=== PATIENT | female | born 1955 | race African-American/Black ===

== ENCOUNTER → 2017-07-02 | Outpatient (CLI) | payer OTHER ==
--- NOTE | 2017-07-02 14:45 | CT ---
EXAMINATION TYPE: CT abdomen pelvis wo con DATE OF EXAM: 07/02/2017 HISTORY: Hematuria per order. Severe pain 5-6 days ago per patient. CT DLP: 626.1 mGycm. Automated Exposure Control for Dose Reduction was Utilized. TECHNIQUE: CT scan of the abdomen and pelvis is performed without oral or IV contrast. COMPARISON: NONE FINDINGS: Within the limitations of a non-contrast study, the following observations are made. LUNG BASES: There is some linear scarring and/or atelectasis in both lower lobes near diaphragm.. LIVER/GB: Liver particularly right lobe of liver is diffusely low dense relative to spleen consistent with diffuse fatty infiltration. PANCREAS: No significant abnormality is seen. SPLEEN: No significant abnormality is seen. ADRENALS: No significant abnormality is seen. KIDNEYS: No renal stones or hydronephrosis is evident bilaterally. There is 2.3 cm low dense lesion p osteriorly upper to mid pole level right kidney on axial image 45 felt to reflect simple cyst. There are 2 adjacent cysts or cyst with septation lower pole level right kidney medially on axial image 60 that warrants follow-up. No true luminal calculus is seen in bladder. BOWEL: No significant abnormality is seen. GENITAL ORGANS: Uterus is anteverted in shape and not suspiciously enlarged. There is suggestion of s mall fibroid superior aspect there axial image 96. Adjacent left ovary is not enlarged. Right ovary i s likely present on axial image 101 and is not enlarged. LYMPH NODES: No greater than 1cm abdominal or pelvic lymph nodes are appreciated. OSSEOUS STRUCTURES: There is moderate disc space narrowing and spurring at lumbosacral junction. Ther e is spurring and subchondral cystic change with narrowing at pubic symphysis. There is facet arthrop athy in lower lumbar spine. OTHER: There is mild calcified plaque of distal abdominal aorta extending into pelvic branch vessels. IMPRESSION: 1. No renal stones or hydronephrosis is seen bilaterally. 2. Possible 2 adjacent simple cysts or lobulated cyst with thickened septa (nonsimple cyst ) lower po le level right kidney. Cystic neoplasm or Bosniak type III or greater lesion cannot be excluded. Advi sed further investigation with ultrasound follow-up. 3. Possible 1 cm superior uterine subserosal fibroid, this can be further investigated with dedicated pelvic ultrasound if desired.
== END | disposition home or self-care (01) ==
LOC: RADCTMAIN 14:04
PROVIDERS: ATTEND Family Medicine
DX: R31.9 Hematuria, unspecified (principal)
CPT/HCPCS: 74176

== ENCOUNTER → 2017-07-19 | Outpatient (CLI) | payer OTHER ==
--- NOTE | 2017-07-20 08:33 | US ---
EXAMINATION TYPE: US pelvis complete transvag DATE OF EXAM: 07/19/2017 COMPARISON: NONE CLINICAL HISTORY: D25.9 Fibroid R31.[address] TECHNIQUE: Transvaginal (TV) and Transabdominal (TA) Date of LMP: Postmenopausal, EXAM MEASUREMENTS: Uterus: 6.5 x 3.9 x 3.3 cm Endometrial Stripe: 0.5 cm Right Ovary: 2.1 x 1.6 x 1.3 cm Left Ovary: 1.7 x 1.0 x 1.2 cm 1. Uterus: Anteverted Right hypoechoic lesion seen, nonvascular= 1.4 x 1.4 x 1.4 cm 2. Endometrium: wnl 3. Right Ovary: wnl 4. Left Ovary: wnl Spectral, color and waveform doppler imaging shows good arterial and venous flow within the ovaries ; there is no evidence for ovarian torsion. 5. Bilateral Adnexa: Anechoic lesions seen in bilateral adnexas, adjacent to ovaries. Right= 3.1 x 2.4 cm, possible tubular in shape. Left= 2.6 x 1.0 cm. 6. Posterior cul-de-sac: no free fluid cervix= wnl IMPRESSION: 1. 1.4 cm hypoechoic uterine lesion most likely related to fibroid and could be confirmed with MRI. 2. there are anechoic lesions seen bilaterally within the adnexa measuring 3.1 cm in the right 0.6 cm and the left which appear to be somewhat outside the course of the ovary. May represent exophytic ov katherine cysts, dilated fallopian tube, or fluid collections. Correlate clinically. MRI could BE obtaine d as follow-up.
== END | disposition home or self-care (01) ==
LOC: RADUSMAIN 15:49
PROVIDERS: ATTEND Family Medicine
DX: N85.9 Noninflammatory disorder of uterus, unspecified (principal)
CPT/HCPCS: 76830; 76856

== ENCOUNTER 2018-02-02 08:55 | Observation (INO) | payer OTHER ==
[2018-02-02] MEDS ORDERED: SODIUM CHLORIDE 0.9% 1,000 ML IV STA (09:21)
[2018-02-02 09:32] LABS: Glucose,Whole Blood 103 mg/dL (75-99)
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
[2018-02-02 10:09] LABS: Basophils % (A) 0 %; Eosinophils # (A) 0.2 k/uL (0-0.7); Eosinophils % (A) 2 %; HCT 41.4 % (34.0-46.0); HGB 13.6 gm/dL (11.4-16.0); Lymphocytes # (A) 2.6 k/uL (1.0-4.8); Lymphocytes % (A) 35 %; MCH 26.2 pg (25.0-35.0); MCHC 32.8 g/dL (31.0-37.0); MCV 79.9 fL (80.0-100.0); Mean Platelet Volume 7.8; Monocytes # (A) 0.4 k/uL (0-1.0); Monocytes % (A) 5 %; Neutrophils # (A) 4.1 k/uL (1.3-7.7); Neutrophils % (A) 54 %; Platelet Count 254 k/uL (150-450); RBC 5.18 m/uL (3.80-5.40); RDW 14.5 % (11.5-15.5); WBC 7.6 k/uL (3.8-10.6)
[2018-02-02 10:17] LABS: ALT 31 U/L (9-52); AST 22 U/L (14-36); Alkaline Phosphatase 69 U/L (38-126); Anion Gap 10 mmol/L; Blood Urea Nitrogen 12 mg/dL (7-17); Calcium 9.8 mg/dL (8.4-10.2); Carbon Dioxide 23 mmol/L (22-30); Chloride 107 mmol/L (98-107); Glucose 97 mg/dL (74-99); Sodium 140 mmol/L (137-145); Total Bilirubin 0.3 mg/dL (0.2-1.3); Total Protein 6.6 g/dL (6.3-8.2)
[2018-02-02 10:19] LABS: Appearance,Urine Clear (Clear); Bilirubin,Urine Negative (Negative); Blood,Urine Negative (Negative); Color,Urine Colorless; Glucose,Urine (UA) Negative (Negative); Ketones,Urine Negative (Negative); Leukocyte Esterase,Urine Negative (Negative); Nitrite,Urine Negative (Negative); Protein,Urine Negative (Negative); Specific Gravity,Urine 1.005 (1.001-1.035); Urobilinogen,Urine <2.0 mg/dL (<2.0)
[2018-02-02 10:28] LABS: Partial Thromboplastin Time 22.4 sec (22.0-30.0); Prothrombin Time 9.8 sec (9.0-12.0)
[2018-02-02 10:40] LABS: Creatine Kinase 193 U/L (30-135)
[2018-02-02 10:52] LABS: Creatine Kinase MB 0.5 ng/mL (0.0-2.4); Troponin I <0.012 ng/mL (0.000-0.034)
[2018-02-02] MEDS ORDERED: NALOXONE 0.4 MG/ML 1 ML VIAL IV PRN (11:17)
[2018-02-02] MEDS ORDERED: ASPIRIN 81 MG PO STA (11:17)
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
[2018-02-02] MEDS ORDERED: ONDANSETRON 4 MG/2 ML VIAL IVP PRN (13:47)
--- NOTE | 2018-02-02 14:12 | XR ---
EXAMINATION TYPE: XR cervical spine comp DATE OF EXAM: 02/02/2018 COMPARISON: NONE HISTORY: Neck pain TECHNIQUE: Four views are submitted. FINDINGS: The odontoid is intact. There are no compression deformities. The prevertebral soft tissue structur es are within normal limits. Hypertrophic and degenerative change of the spine is seen with posterio r spondylosis at levels C4-5, C5-6 and C6-C7. Foraminal encroachment at these levels noted. IMPRESSION: 1. Multilevel severe degenerative disc disease with posterior spondylosis. Recommend MRI..
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
[2018-02-02] MEDS: CLOPIDOGREL 75 MG TAB PO SCH (16:58)
[2018-02-02] MEDS: ACETAMINOPHEN TAB 325 MG TAB PO PRN (16:58)
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
[2018-02-02] MEDS: FAMOTIDINE 20 MG TAB PO SCH (20:32)
--- NOTE | 2018-02-02 20:42 | US ---
EXAMINATION TYPE: US carotid duplex BILAT DATE OF EXAM: 02/02/2018 COMPARISON: NONE CLINICAL HISTORY: Syncope. Syncope EXAM MEASUREMENTS: RIGHT: Peak Systolic Velocity (PSV) cm/sec ----- Right CCA: 72.5 ----- Right ICA: 72.5 ----- Right ECA: 97.3 ICA/CCA ratio: 1.0 RIGHT: End Diastole cm/sec ----- Right CCA: 21.7 ----- Right ICA: 26.0 ----- Right ECA: 14.4 LEFT: Peak Systolic Velocity (PSV) cm/sec ----- Left CCA: 71.3 ----- Left ICA: 62.0 ----- Left ECA: 95.6 ICA/CCA ratio: 0.9 LEFT: End Diastole cm/sec ----- Left CCA: 18.4 ----- Left ICA: 17.1 ----- Left ECA: 18.0 VERTEBRALS (direction of flow): Right Vertebral: Antegrade Left Vertebral: Antegrade Rhythm: Normal IMPRESSION: NO SIGNIFICANT STENOSIS SEEN.
[2018-02-03 00:41] VITALS: RESP 18
[2018-02-03] MEDS: ACETAMINOPHEN TAB 325 MG TAB PO PRN (04:58)
[2018-02-03] MEDS: CLOPIDOGREL 75 MG TAB PO SCH (08:38)
[2018-02-03] MEDS: FAMOTIDINE 20 MG TAB PO SCH (08:39)
[2018-02-03 08:45] VITALS: TEMP 97.8
[2018-02-03] MEDS ORDERED: ASPIRIN 81 MG PO SCH (09:00)
[2018-02-03] MEDS ORDERED: amLODIPine 2.5 MG TAB PO SCH (09:00)
[2018-02-03 11:44] VITALS: BP 128/71; PULSE 56
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
--- NOTE | 2018-02-03 12:23 | ECHOF ---
Referral Reason:Syncope MEASUREMENTS -------- HEIGHT: 152.4 cm WEIGHT: 84.8 kg BP: 133/81 RVIDd: 2.4 cm (< 3.3) IVSd: 1.2 cm (0.6 - 1.1) LVIDd: 4.7 cm (3.9 - 5.3) LVPWd: 1.1 cm (0.6 - 1.1) IVSs: 1.5 cm LVIDs: 2.0 cm LVPWs: 1.6 cm LAESV Index (A-L): 26.09 ml/m Ao Diam: 2.4 cm (2.0 - 3.7) AV Cusp: 1.5 cm (1.5 - 2.6) LA Diam: 3.6 cm (2.7 - 3.8) EPSS: 0.2 cm MV E Matthew: 1.10 m/s MV DecT: 225 ms MV A Matthew: 0.82 m/s MV E/A Ratio: 1.34 RAP: 5.00 mmHg RVSP: 27.76 mmHg MV EF SLOPE: 102.68 mm/s (70 - 150) MV EXCURSION: 1.59 cm (> 18.000) FINDINGS -------- Sinus rhythm. This was a technically good study. The left ventricular size is normal. There is mild concentric left ventricular hypertrophy. Overa ll left ventricular systolic function is normal with, an EF between 55 - 60 %. The right ventricle is normal in size and function. Normal LA size by volume 22+/-6 ml/m2. The right atrium is normal in size. Aortic valve is trileaflet and is mildly thickened. There is no evidence of aortic regurgitation. There is no evidence of aortic stenosis. The mitral valve leaflets are mildly thickened. Mild mitral regurgitation is present. Trace tricuspid regurgitation present. Right ventricular systolic pressure is normal at < 35 mmHg. There is no evidence of pulmonary hypertension. The pulmonic valve was not well visualized. The aortic root size is normal. Normal inferior vena cava with normal inspiratory collapse consistent with estimated right atrial pre ssure of 5 mmHg. There is no pericardial effusion. CONCLUSIONS -------- 1. Sinus rhythm. 2. This was a technically good study. 3. The left ventricular size is normal. 4. There is mild concentric left ventricular hypertrophy. 5. Overall left ventricular systolic function is normal with, an EF between 55 - 60 %. 6. Normal LA size by volume 22+/-6 ml/m2. 7. Aortic valve is trileaflet and is mildly thickened. 8. The mitral valve leaflets are mildly thickened. 9. Mild mitral regurgitation is present. 10. Trace tricuspid regurgitation present. 11. Right ventricular systolic pressure is normal at < 35 mmHg. 12. There is no evidence of pulmonary hypertension. 13. The pulmonic valve was not well visualized. 14. The aortic root size is normal. 15. There is no pericardial effusion. DENSITOMETRIST: Brian Drake RDCS
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
== END 2018-02-03 14:10 | disposition home or self-care (01) ==
LOC: EC 08:55 → 6SEL 11:17
PROVIDERS: ADMIT Family Medicine; ATTEND Family Medicine
DX: R42 Dizziness and giddiness (principal); R55 Syncope and collapse; R53.1 Weakness; R41.82 Altered mental status, unspecified; I10 Essential (primary) hypertension; M79.602 Pain in left arm; M50.30 Other cervical disc degeneration, unspecified cervical region; M47.812 Spondylosis without myelopathy or radiculopathy, cervical region; E78.5 Hyperlipidemia, unspecified; G89.29 Other chronic pain; H92.01 Otalgia, right ear; Z68.36 Body mass index [BMI] 36.0-36.9, adult; E66.9 Obesity, unspecified; F17.200 Nicotine dependence, unspecified, uncomplicated; Z79.1 Long term (current) use of non-steroidal anti-inflammatories (NSAID); Z79.899 Other long term (current) drug therapy; Z82.49 Family history of ischemic heart disease and other diseases of the circulatory system; Z82.3 Family history of stroke; Z80.1 Family history of malignant neoplasm of trachea, bronchus and lung
CPT/HCPCS: 99285 ×2; 96360 ×2; 96361 ×7; 36415; 94760; 95819; 93005; 93306; 97161; 97165; 80053; 82550; 82553; 84484; 85025; 85610; 85730; 81003; 72050; 71046; 93880; 70450; 70553; G0378 ×2; A9581

== ENCOUNTER → 2024-05-31 | Outpatient (CLI) | payer MEDICARE ==
--- NOTE | 2024-05-31 13:12 | CTL ---
EXAMINATION TYPE: CT Low Dose Lung DATE OF EXAM ORDERED: 05/31/2024 HISTORY: 61-year-old female F17.210, cigarette smoker, 30 pack-year history. Lung cancer screening CT DLP: 77.[address] CTDI: 2.4 mGy Automated exposure control for dose reduction was used. SCREENING VISIT: Delayed annual follow-up COMPARISON: 05/18/2016 TECHNIQUE: Low dose computed tomography scan was performed through the chest at 1 mm thick sections a nd reconstructed images in multiple planes at 1 mm and [address] DIAGNOSTIC QUALITY: Satisfactory FINDINGS: The heart is borderline enlarged without pericardial effusion. Aorta normal caliber with mild atherosclerotic arch calcifications and bovine configuration to the ao rtic arch. No thoracic lymphadenopathy by CT size criteria. Similar strandy areas of scarring at the bilateral mid and lower lungs. Mild diffuse bronchial wall t hickening. Mild emphysematous change. Some minimal groundglass change in the lower lungs appears to h ave increased from prior. No consolidation or pleural effusion. No suspicious pulmonary nodule or mas s. Visualized upper abdomen shows no gross abnormality. Bones: Mild anterior endplate spondylosis lower thoracic spine. IMPRESSION: 1. Lung RADS 1, negative. No suspicious pulmonary nodules. 2. COPD with mild emphysema. Recommend smoking cessation. Similar strandy scarring in the mid and low er lungs. 3. Minimal patchy groundglass has developed in the lower lungs. A couple possible considerations incl ude the development of fine interstitial scarring or an interstitial pneumonitis such as DIP. CT LUNG RAD AND CT CHEST RECOMMENDATION: Lung-Rad 1 Negative: Continue annual screening with LDCT in 12 months. S Modifier (other clinically significant findings): None
== END | disposition home or self-care (01) ==
LOC: RADCTMAIN 11:10
PROVIDERS: ATTEND Family Medicine
DX: Z12.2 Encounter for screening for malignant neoplasm of respiratory organs (principal); F17.210 Nicotine dependence, cigarettes, uncomplicated; J43.9 Emphysema, unspecified
CPT/HCPCS: 71271

== ENCOUNTER → 2024-05-31 | Outpatient (CLI) | payer MEDICARE ==
--- NOTE | 2024-05-31 13:28 | BD ---
EXAMINATION TYPE: Axial Bone Density DATE OF EXAM: 05/31/2024 CLINICAL HISTORY: 69 years old Female. ICD-10 CODE: Z78.0 ASYMPTOMATIC MENOPAUSAL STATE Height: 59.5 in Weight: 189 lbs FRAX RISK QUESTIONS: Secondary Osteoporosis: Current Tobacco Use: yes EXAM MEASUREMENTS: Bone mineral densitometry was performed using the [employer] System. Bone mineral density as measured about the Lumbar spine is: ----- L1-L4(G/cm2): 1.401 T Score Values are as follows: ----- L1: 2.1 ----- L2: 1.2 ----- L3: 0.8 ----- L4: 2.7 ----- L1-L4: 1.8 Z Score Values are as follows: ----- L1: 2.4 ----- L2: 1.5 ----- L3: 1.0 ----- L4: 3.0 ----- L1-L4: 2.1 Bone mineral density baseline Bone mineral density about the R hip (g/cm2): 0.977 Bone mineral density about the L hip (g/cm2): 1.015 T Score values are as follows: -----R Neck: -0.5 -----L Neck: -0.5 -----R Total: -0.2 -----L Total: 0.1 Z Score values are as follows: -----R Neck: -0.3 -----L Neck: -0.2 -----R Total: -0.4 -----L Total: 0.0 Bone mineral density baseline FRAX%s: The graph provided illustrates a 3.0% chance for a major osteoporotic fx and a 0.3% chance fo r the hips probability for fx in 10 years time. IMPRESSION: Normal (Values between +1 and -1 indicate normal bone mass). Consider repeating this study in 5 year s or sooner if there is some new clinical indication. NOTE: T-SCORE=SD OF THE YOUNG ADULT MEAN.
--- NOTE | 2024-06-02 08:10 | MM ---
Reason for Exam: Screening (asymptomatic). Last mammogram was performed 18 year(s) and 0 month(s) ago. Patient History: Menarche at age 13. First Full-Term at age 29. Postmenopausal. Maternal aunt had breast cancer, age 33. Risk Values: Aileen 5 year model risk: 1.7%. NCI Lifetime model risk: 5.3%. Prior Study Comparison: 05/10/2006 Bilateral Screening Mammogram, [facility]. Tissue Density: The breasts are heterogeneously dense, which may obscure small masses. Findings: Analyzed By CAD. There is no suspicious group of microcalcifications or new suspicious mass in either breast. Overall Assessment: Negative, BI-RAD 1 Management: Screening Mammogram of both breasts in 1 year. . Patient should continue monthly self-breast exams. A clinical breast exam by your physician is recommended on an annual basis. This exam should not preclude additional follow-up of suspicious palpable abnormalities. Note on Aileen scores and lifetime risk: 1. A Alieen score greater than 3% is considered moderate risk. If this is the case, consider specialist referral to assess eligibility for a risk reducing agent. 2. If overall lifetime risk for the development of breast cancer is 20% or higher, the patient may qualify for future screening with alternating mammogram and breast MRI. Electronically signed and approved by: Ervin Griffin M.D. Radiologis
== END | disposition home or self-care (01) ==
LOC: RADMAMWWP 11:06
PROVIDERS: ATTEND Family Medicine
DX: Z12.31 Encounter for screening mammogram for malignant neoplasm of breast (principal); Z78.0 Asymptomatic menopausal state; Z80.3 Family history of malignant neoplasm of breast
CPT/HCPCS: 77063; 77067; 77080

== ENCOUNTER 2024-08-08 09:52 | Day surgery (SDC) | payer MEDICARE ==
[2024-08-07 10:52] VITALS: BMI 36.1
[~2024-08-08 09:52] MED LIST: LACTATED RINGERS 1,000 ML IV SCH
[2024-08-08] MEDS: IV FLUID CONTINUATION 1,000 ML IV ONE (10:53)
[2024-08-08 11:02] VITALS: TEMP 97.8
[2024-08-08] MEDS ORDERED: PROPOFOL 10 MG/ML 20 ML VIAL IV ONE (11:51)
--- NOTE | 2024-08-08 12:03 | P.PCN ---
Date of Procedure: 08/08/24 Procedure(s) Performed: BRIEF HISTORY: Patient is a 69-year-old pleasant -[place] female scheduled for an elective colonoscopy as a part of screening for colon cancer/positive Cologuard PROCEDURE PERFORMED: Colonoscopy snare polypectomy. PREOPERATIVE DIAGNOSIS: Screening for colon cancer/positive Cologuard. IV sedation per Anesthesia. PROCEDURE: After informed consent was obtained, the patient, was brought into the endoscopy unit. IV sedation was administered by Anesthesia under continuous monitoring. Digital rectal examination was normal. Initially the Olympus CF-160 flexible video colonoscope was then inserted in the rectum, gradually advanced into the cecum without any difficulty. Careful examination was performed as the scope was gradually being withdrawn. Ileocecal valve and the appendiceal orifice were visualized and appeared normal. Prep was excellent. Mucosa of the cecum, ascending colon, transverse colon, descending colon, sigmoid colon, and rectum appeared normal. Retroflexion was performed in the rectum and no lesions were seen. The patient tolerated the procedure well. IMPRESSION: 3 mm and 1 cm sigmoid colon polyp status post snare polypectomy scattered sigmoid diverticulosis. Biopsy appeared normal. In the sigmoid colon there was a 3 mm and 1 cm polyp removed by snare polypectomy. Scattered sigmoid diverticulosis seen. Rest of the RECOMMENDATIONS: Findings of this examination were discussed with the patient as well as her family. She was advised follow-up with the biopsy results. If the biopsy reveals adenoma she can have repeat colonoscopy in 3 years..
[2024-08-08 12:11] VITALS: RESP 14
[2024-08-08 12:26] VITALS: BP 133/72; PULSE 77
== END 2024-08-08 12:48 | disposition home or self-care (01) ==
LOC: ORWHC2ENDO 09:52
PROVIDERS: ATTEND Internal Medicine Gastroenterology
DX: R19.5 Other fecal abnormalities
CPT/HCPCS: 45385; 88305